=== PATIENT | female | born 2000 | race Caucasian/White ===

== ENCOUNTER → 2023-05-18 13:34 | Outpatient (CLI) | payer SELFPAY ==
--- NOTE | 2023-05-18 13:44 | DI.RAD.S_ITS ---
PROCEDURE: XR SHOULDER LT MIN 2V INDICATIONS: Left shoulder pain TECHNIQUE: 3 views of the shoulder were acquired. COMPARISON: None. FINDINGS: Bones: No fractures or dislocations. No suspicious bony lesions. Visualized ribs appear intact. Soft tissues: No suspicious soft tissue calcifications. IMPRESSION: No acute bony abnormality. Dictated by: Rg Babb M.D. on 05/18/2023 at 17:23 Approved by: Rg Babb M.D. on 05/18/2023 at 17:24
--- NOTE | 2023-05-18 13:44 | DI.RAD.S_ITS ---
PROCEDURE: XR CLAVICLE LT INDICATIONS: Left shoulder pain TECHNIQUE: 2 views of the clavicle were acquired. COMPARISON: None. FINDINGS: Bones: No fractures or dislocations. No suspicious bony lesions. Soft tissues: No suspicious soft tissue calcifications. IMPRESSION: No clavicular fracture or dislocation. No radiographic evidence of high-grade AC separation. Dictated by: Gaudencio Cline M.D. on 05/18/2023 at 15:35 Approved by: Gaudencio Cline M.D. on 05/18/2023 at 15:36
== END ==
LOC: RAD 13:44
PROVIDERS: Referring Provider Physician Assistant; Visit Provider Physician Assistant
DX: M25.512 Pain in left shoulder (principal)
CPT/HCPCS: 73000; 73030

== ENCOUNTER 2023-06-07 10:56 | Emergency (ER) | payer OTHER, MEDICAID, SELFPAY ==
[2023-06-07 11:14] VITALS: BP 143/90; PULSE 75; RESP 16; TEMP 36.4; O2SAT 98; BMI 23.0
--- NOTE | 2023-06-07 11:28 | ED.ABDPAIN ---
HPI - Abdominal Pain <HERBERT Christy Last Filed: 06/07/23 12:00> General Chief Complaint: Abdominal Pain Stated Complaint: abd pain on L side Time Seen by Provider: 06/07/23 11:26 Source: patient Mode of arrival: Ambulatory History of Present Illness HPI narrative: This is a 23-year-old female presents to the emergency department due to left lower quadrant abdominal pain for the last 3 days. States that it is a 3/10 in severity. Intermittent cramping. Patient was on her period. Does not report any dysuria, urinary frequency. Denies any fevers, nausea, vomiting, constipation, or any other concerning signs or symptoms. States that she has had an ovarian cyst in the past and thinks this may be similar. Reports some vaginal bleeding although none abnormal. Patient was on her period. Denies any vaginal discharge. Related Data Home Medications Medication Instructions Recorded Confirmed No Known Home Medications 05/18/23 05/18/23 Allergies Allergy/AdvReac Type Severity Reaction Status Date / Time No Known Drug Allergies Allergy Verified 06/07/23 11:17 Review of Systems <HERBERT Christy Last Filed: 06/07/23 12:00> Review of Systems Narrative: GENERAL: Denies chills, fatigue, malaise, fever, sweats. HEENT: Denies sinus pain, ear pain, sore throat, difficulty swallowing, dizziness. RESPIRATORY: Denies dyspnea, cough, wheezing, hemoptysis, sputum. CARDIOVASCULAR: Denies chest pain, palpitations, orthopnea, edema, GASTROINTESTINAL: Left lower quadrant abdominal pain, otherwise Denies nausea, vomiting, abdominal pain, diarrhea, constipation, melena. : Denies dysuria, frequency, incontinence, hematuria, urinary retention. MUSCULOSKELETAL: denies weakness, joint pain, or bony pain SKIN: Denies rash, skin lesions, or other NEUROLOGIC: Denies weakness, headache, numbness, change in speech, confusion, seizures, incoordination. PSYCHIATRIC: No concerning psychosocial issues. 12 point review of systems is negative except for those stated above Patient History <HERBERT Christy Last Filed: 06/07/23 12:00> Social History Smoking Status: Never smoker Smoking Status: Never smoker alcohol intake frequency: a few times a month Substance Use Type: does not use Exam <HERBERT Christy Last Filed: 06/07/23 12:00> Narrative Exam Narrative: GENERAL: Well-developed patient, in mild distress. HEAD: Atraumatic. Normocephalic. EYES: Pupils equal round and reactive. Extraocular motions intact. No scleral icterus. No injection or drainage. ENT: Nose without bleeding, purulent drainage. Throat without erythema, tonsillar hypertrophy or exudate. Airway patent. NECK: Trachea midline. Non tender EXTREMITIES: No edema or joint tenderness. NEURO: AOx3. SKIN: No rash or erythema of visible areas CARDIOVASCULAR: Regular rate and rhythm without murmurs, gallops, or rubs. RESPIRATORY: Clear to auscultation. Breath sounds equal bilaterally. No wheezes, rales, or rhonchi. GASTROINTESTINAL: Mild tenderness to palpation to the left lower quadrant BACK: Nontender without deformity or crepitance. No flank tenderness. Initial Vital Signs Initial Vital Signs: Vital Signs Temperature 97.5 F L 06/07/23 11:14 Pulse Rate 75 06/07/23 11:14 Respiratory Rate 16 06/07/23 11:14 Blood Pressure 143/90 H 06/07/23 11:14 Pulse Oximetry 98 06/07/23 11:14 Oxygen Delivery Method Room Air 06/07/23 11:14 <DO William Romero Last Filed: 06/07/23 15:25> Initial Vital Signs Initial Vital Signs: Vital Signs Temperature 97.5 F L 06/07/23 11:14 Pulse Rate 75 06/07/23 11:14 Respiratory Rate 16 06/07/23 11:14 Blood Pressure 143/90 H 06/07/23 11:14 Pulse Oximetry 98 06/07/23 11:14 Oxygen Delivery Method Room Air 06/07/23 11:14 Course <Germán Steel PA-C - Last Filed: 06/07/23 12:00> Vital Signs Vital signs: Vital Signs - 8 hr 06/07/23 11:14 Temperature 97.5 F L Pulse Rate 75 Respiratory Rate 16 Blood Pressure 143/90 H Pulse Oximetry 98 Oxygen Delivery Method Room Air <Jose Sosa DO - Last Filed: 06/07/23 15:25> Vital Signs Vital signs: Vital Signs - 8 hr 06/07/23 11:14 Temperature 97.5 F L Pulse Rate 75 Respiratory Rate 16 Blood Pressure 143/90 H Pulse Oximetry 98 Oxygen Delivery Method Room Air MDM - Abdominal Pain <Germán Steel PA-C - Last Filed: 06/07/23 12:00> Lab Data Point of care testing: Point of Care Testing Test Results Negative Urine Dip Bedside Urine Glucose Negative Bedside Urine Bilirubin - Negative Bedside Urine Ketone - Negative Urine Specific [place] 1.015 Bedside Urine Occult Blood +++ Bedside Urine pH 6.5 Bedside Urine Protein - Negative Bedside Urine Urobilinogen - Negative Bedside Urine Nitrite - Negative Bedside Urine Leukocytes - Negative Esterase MDM Narrative Medical decision making narrative: ED course: This is a 23-year-old female presenting to the emergency department due to left lower quadrant abdominal pain for the last 3 days. Intermittent and cramping in nature. Maybe related to her normal. As she was on it currently. Discussed possibility of pelvic ultrasound to further investigate the cause of the pain. Patient was concerned about the trevizo of the exam and declined any further workup. This may be due to an ovarian cyst she was had in the past. Recommended [id number] ibuprofen as needed for the pain and patient will return as needed if pain continues or she develops any new symptoms.. CC: Left lower quadrant abdominal pain Complicating co-morbidities: History of ovarian cyst Data collected from: Previous notes Medical records reviewed: Patient has not been to this emergency department in the past. Differential considered, but not limited to: Ovarian torsion, ovarian cyst, dysmenorrhea, diverticulitis Exam documented above, pertinent findings include: Left lower quadrant abdominal pain and tenderness to palpation Lab Test results independently reviewed as above. Pertinent findings: None obtained Imaging studies independently reviewed: None obtained Scores Used: None MIPS Elements: None Consultations: None Treatments: None Re-evaluations: None Discussion: Discussed plan with the patient was comfortable with the plan Diagnosis: Left lower quadrant abdominal pain Disposition: see below, along with detailed discharge instructions that have been reviewed with patient as well as indications for ED re-evaluation and additional outpatient follow up <Jose Sosa DO - Last Filed: 06/07/23 15:25> Lab Data Point of care testing: Point of Care Testing Test Results Negative Urine Dip Bedside Urine Glucose Negative Bedside Urine Bilirubin - Negative Bedside Urine Ketone - Negative Urine Specific [place] 1.015 Bedside Urine Occult Blood +++ Bedside Urine pH 6.5 Bedside Urine Protein - Negative Bedside Urine Urobilinogen - Negative Bedside Urine Nitrite - Negative Bedside Urine Leukocytes - Negative Esterase Discharge Plan Departure Patient Disposition: Home Clinical Impression: Abdominal pain Instructions: DI for Ovarian Cyst, DI for Abdominal Pain-Adult Activity Restrictions/Additional Instructions: Thank you for coming to the [facility] Emergency Department today. As discussed we are unable to definitively diagnose you as we are unable to pursue any further workup. I recommend [id number] ibuprofen as needed to help with the pain. This maybe due to your normal menstrual cycle or the possible ovarian cyst you said you have been diagnosed with. If the pain worsens or you develop any new or worrisome symptoms please return to the emergency department for further evaluation. I hope you feel better soon. Please follow up with your primary care provider within a week if your symptoms continue. If you do not have a primary care provider please contact the [facility] Resource line at [phone]. They will ask some questions about your medical history and help you get set up with a provider in the community. Prescriptions: No Action No Known Home Medications Referrals: Miscellaneous,Doctor, MD [Primary Care Provider] - Stand Alone Forms: Patient Portal/API ED Sign-out <Jose Sosa, DO - Last Filed: 06/07/23 15:25> [facility]: Dr Sosa Co-Sign Statement: I was available for consultation during this patient's emergency department visit. This chart is signed by myself for administrative purposes only. I did not have direct contact with this patient during this visit. They were seen independently by the APC.
== END 2023-06-07 12:00 | disposition home or self-care (01) ==
PROVIDERS: Emergency Provider Physician Assistant Medical
DX: R10.32 Left lower quadrant pain (principal)
CPT/HCPCS: 81003; 81025; 99282